=== PATIENT | male | born 1965 | race Caucasian/White ===

== ENCOUNTER 2017-11-24 15:10 | Emergency (ER) | payer MEDICARE, MEDICAID ==
[~2017-11-24] VITALS: Ht 175.3 cm; Wt 85.2 kg
[~2017-11-24 15:10] MED LIST: IBUP-1986 PO
[2017-11-24 15:15] VITALS: BP 130/77
[2017-11-24] MEDS ORDERED: methylPREDNISolone sod succ 125mg/2ml vial IM ONE (15:30)
[2017-11-24 16:33] LABS: CLARITY,URINE CLEAR (Clear); COLOR,URINE YELLOW (Yellow); GLUCOSE, URINE NEGATIVE (Neg); KETONES,URINE TRACE mg/dl (Neg); LEUKOCYTE ESTERASE ,URINE NEGATIVE (Neg); NITRITES, URINE NEGATIVE (Neg); OCCULT BLOOD,URINE MODERATE (Neg); PH,URINE 5.5 (4.8-8.0); PROTEIN,URINE 100 mg/dl (Neg)
[2017-11-24 16:35] LABS: UA COLLECTION TYPE CLN CATCH MIDSTREAM
[2017-11-24 16:38] LABS: BACTERIA,URINE NONE SEEN /HPF (Neg); HYALINE CASTS 0-3 /LPF (NEGATIVE); MUCUS STRANDS MODERATE /LPF (Neg); SQUAMOUS EPITHELIAL CELL,UR FEW /LPF (FEW); WBC,URINE 0-4 /HPF (0-4)
[2017-11-24 16:47] LABS: MONOTEST NEGATIVE (Neg)
[2017-11-24] MEDS ORDERED: PRED10TA23 PO (16:50)
== END 2017-11-24 18:28 | disposition home or self-care (01) ==
LOC: ER 15:11
DX: J02.9 Acute pharyngitis, unspecified (principal); R51 Headache; M54.5 Low back pain; R53.1 Weakness; E11.9 Type 2 diabetes mellitus without complications; J45.909 Unspecified asthma, uncomplicated; F32.9 Major depressive disorder, single episode, unspecified
CPT/HCPCS: 36415; 74176; 81001; 86308; 87081; 87880; 96372; 99285; J2930; 96374

== ENCOUNTER 2018-01-21 07:46 | Emergency (ER) | payer MEDICARE, MEDICAID ==
[~2018-01-21] VITALS: Ht 175.3 cm; Wt 86.4 kg
[2018-01-21 07:59] VITALS: BP 135/86
[2018-01-21] MEDS ORDERED: ketorolac tromethamine 15mg/ml inj. IM ONE (08:10)
== END 2018-01-21 09:20 | disposition home or self-care (01) ==
LOC: ER 07:46
DX: R07.81 Pleurodynia (principal); R05 Cough; R11.10 Vomiting, unspecified; E11.9 Type 2 diabetes mellitus without complications; J45.909 Unspecified asthma, uncomplicated; Z79.899 Other long term (current) drug therapy
CPT/HCPCS: 71046; 96372; 99284; J1885

== ENCOUNTER 2018-03-23 21:26 | Emergency (ER) | payer MEDICARE, MEDICAID ==
[~2018-03-23] VITALS: Ht 175.3 cm; Wt 87.2 kg
[2018-03-23 21:35] VITALS: BP 139/91
== END 2018-03-23 22:27 | disposition home or self-care (01) ==
LOC: ER 21:26
DX: R07.81 Pleurodynia (principal); J45.909 Unspecified asthma, uncomplicated; E11.9 Type 2 diabetes mellitus without complications
CPT/HCPCS: 71045; 99283

== ENCOUNTER 2018-03-31 23:55 | Emergency (ER) | payer MEDICARE, MEDICAID ==
[~2018-03-31] VITALS: Ht 175.3 cm; Wt 74.8 kg
[2018-04-01] MEDS ORDERED: ibuprofen tablet 400 MG TABLET PO ONE (00:20)
[2018-04-01] MEDS ORDERED: IBUP-1984 PO (00:23)
[2018-04-01 00:56] VITALS: BP 137/86
== END 2018-04-01 01:01 | disposition home or self-care (01) ==
LOC: ER 23:55
DX: K08.89 Other specified disorders of teeth and supporting structures (principal); J45.909 Unspecified asthma, uncomplicated; E11.9 Type 2 diabetes mellitus without complications; Z79.899 Other long term (current) drug therapy
CPT/HCPCS: 99283

== ENCOUNTER 2019-10-30 | Emergency (ER) | payer MEDICARE, MEDICAID ==
[~2019-10-30] VITALS: Ht 175.3 cm; Wt 75.6 kg
[2019-10-30 00:06] VITALS: BP 121/71
[2019-10-30] MEDS ORDERED: cephalexin 500mg capsule PO ONE (00:55)
[2019-10-30] MEDS ORDERED: HYDROcodone/acetaminophen 10/325mg tab PO ONE (00:55)
[2019-10-30] MEDS ORDERED: CEPH500C5 PO (00:56)
== END 2019-10-30 01:32 | disposition home or self-care (01) ==
LOC: ER
DX: L03.032 Cellulitis of left toe (principal); J45.909 Unspecified asthma, uncomplicated; E11.9 Type 2 diabetes mellitus without complications; F32.9 Major depressive disorder, single episode, unspecified; Z79.899 Other long term (current) drug therapy
CPT/HCPCS: 87070; 87077; 87186; 99283

== ENCOUNTER 2022-11-27 07:26 | Emergency (ER) | payer BC, MEDICAID ==
[~2022-11-27] VITALS: Ht 177.8 cm; Wt 81.8 kg
[2022-11-27 07:41] VITALS: TEMP 98.4
[2022-11-27 07:49] VITALS: BP 154/84; PULSE 76; RESP 18; O2SAT 97
[2022-11-27] MEDS ORDERED: CIPR2.5D12 RIGHTEYE ×3 (08:12→08:28)
[2022-11-27] MEDS ORDERED: IBUP-1984 PO ×3 (08:12→08:28)
[2022-11-28] MEDS ORDERED: NAPR-56 PO (23:52)
[2022-11-28] MEDS ORDERED: DOXY-356 PO (23:52)
== END 2022-11-27 08:28 | disposition home or self-care (01) ==
LOC: ER 07:26
DX: H00.012 Hordeolum externum right lower eyelid (principal); J45.909 Unspecified asthma, uncomplicated; E11.9 Type 2 diabetes mellitus without complications; F32.A Depression, unspecified
CPT/HCPCS: 99283

== ENCOUNTER 2022-11-28 23:01 | Emergency (ER) | payer BC, MEDICAID ==
[~2022-11-28] VITALS: Ht 175.3 cm; Wt 81.8 kg
[~2022-11-28 23:01] MED LIST changes: +CIPR2.5D12 RIGHTEYE; +IBUP-1984 PO
[2022-11-28 23:19] VITALS: BP 152/92; PULSE 74; RESP 16; TEMP 98.5; O2SAT 96
[2022-11-28] MEDS ORDERED: ketorolac trometh inj. 60 MG/2 ML VIAL IM ONE (23:50)
[2022-11-28] MEDS ORDERED: NAPR-56 PO (23:52)
[2022-11-28] MEDS ORDERED: DOXY-356 PO (23:52)
== END 2022-11-29 00:12 | disposition home or self-care (01) ==
LOC: ER 23:01
DX: K04.7 Periapical abscess without sinus (principal); J45.909 Unspecified asthma, uncomplicated; E11.9 Type 2 diabetes mellitus without complications; F32.A Depression, unspecified; Z79.899 Other long term (current) drug therapy
CPT/HCPCS: 96372; 99283; J1885

== ENCOUNTER 2023-08-03 19:25 | Emergency (ER) | payer BC, MEDICAID ==
[~2023-08-03] VITALS: Ht 175.3 cm; Wt 90.1 kg
[~2023-08-03 19:25] MED LIST changes: -IBUP-1984 PO
[2023-08-03 19:27] VITALS: BP 142/83; PULSE 100; TEMP 98; O2SAT 94
[2023-08-03] MEDS ORDERED: SILV50CR31 TOP (20:16)
[2023-08-03] MEDS ORDERED: CEPH-585 PO (20:16)
[2023-08-03] MEDS ORDERED: silver sulfadiazine cream 400gm jar TP STA (20:17)
[2023-08-03] MEDS ORDERED: ketorolac trometh inj. 60 MG/2 ML VIAL IM ONE (20:20)
[2023-08-03] MEDS: silver sulfadiazine cream 50gm TP STA (21:07)
[2023-08-03 21:23] VITALS: RESP 20
[2023-08-03] MEDS: ketorolac tromethamine 15mg/ml inj. IM ONE (21:23)
== END 2023-08-03 21:35 | disposition home or self-care (01) ==
LOC: ER 19:26
DX: T23.101A Burn of first degree of right hand, unspecified site, initial encounter (principal); Z79.2 Long term (current) use of antibiotics; Z79.1 Long term (current) use of non-steroidal anti-inflammatories (NSAID); X10.1XXA Contact with hot food, initial encounter; Y93.89 Activity, other specified; Y92.89 Other specified places as the place of occurrence of the external cause; Y99.8 Other external cause status
CPT/HCPCS: 16000; 96372; 99283; J1885

== ENCOUNTER 2024-02-13 17:00 | Emergency (ER) | payer BC, MEDICAID ==
[~2024-02-13] VITALS: Ht 175.3 cm; Wt 89.4 kg
[2024-02-13] MEDS ORDERED: IBUP-1984 PO (17:54)
[2024-02-13] MEDS ORDERED: OXYC-145 PO (17:54)
[2024-02-13] MEDS ORDERED: SILV50CR31 TP (17:56)
[2024-02-13] MEDS: acetaminophen 325mg tablet PO ONE (18:00)
[2024-02-13] MEDS: ketorolac trometh 30MG/ML vial 30 MG/ML VIAL IM ONE (18:01)
[2024-02-13] MEDS: silver sulfadiazine cream 400gm jar TP SCH (18:15)
[2024-02-13 18:24] VITALS: BP 132/78; PULSE 78; RESP 14; TEMP 97.9; O2SAT 98
[2024-02-14] MEDS ORDERED: silver sulfadiazine cream 400gm jar TP SCH (08:00)
== END 2024-02-13 18:32 | disposition home or self-care (01) ==
LOC: ER 17:01
DX: T23.251A Burn of second degree of right palm, initial encounter (principal); T23.252A Burn of second degree of left palm, initial encounter; E11.9 Type 2 diabetes mellitus without complications; J45.909 Unspecified asthma, uncomplicated; F32.A Depression, unspecified; Z79.1 Long term (current) use of non-steroidal anti-inflammatories (NSAID); Z79.899 Other long term (current) drug therapy; X19.XXXA Contact with other heat and hot substances, initial encounter; Y93.89 Activity, other specified; Y92.89 Other specified places as the place of occurrence of the external cause; Y99.8 Other external cause status
CPT/HCPCS: 16000; 96372; 99283; J1885

== ENCOUNTER 2024-08-24 22:27 | Emergency (ER) | payer BC, MEDICAID ==
[~2024-08-24] VITALS: Ht 175.3 cm; Wt 78.6 kg
[~2024-08-24 22:27] MED LIST changes: +OXYC-145 PO
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
[2024-08-24] MEDS ORDERED: NALO4SPR BOTHNARES (23:31)
[2024-08-24] MEDS ORDERED: OXYC-658 PO (23:31)
[2024-08-24 23:37] VITALS: BP 141/91; PULSE 86; RESP 14; O2SAT 94
[2024-08-24] MEDS: ketorolac trometh 30MG/ML vial 30 MG/ML VIAL IM ONE (23:44)
[2024-08-25] MEDS ORDERED: HYDR-3965 PO (00:13)
[2024-08-25 00:17] VITALS: TEMP 98
== END 2024-08-25 00:19 | disposition home or self-care (01) ==
LOC: ER 22:28
DX: G89.11 Acute pain due to trauma (principal); F31.9 Bipolar disorder, unspecified; J45.909 Unspecified asthma, uncomplicated; E11.9 Type 2 diabetes mellitus without complications; E78.5 Hyperlipidemia, unspecified; Z86.79 Personal history of other diseases of the circulatory system; Z87.81 Personal history of (healed) traumatic fracture
CPT/HCPCS: 96372; 99283; J1885

== ENCOUNTER 2024-09-07 15:20 | Emergency (ER) | payer BC, MEDICAID ==
[~2024-09-07] VITALS: Ht 175.3 cm; Wt 74.5 kg
[~2024-09-07 15:20] MED LIST changes: +NALO4SPR BOTHNARES
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
[2024-09-07] MEDS: ketorolac trometh 30MG/ML vial 30 MG/ML VIAL IM ONE (16:17)
[2024-09-07] MEDS ORDERED: KETO75CA11 PO (16:32)
[2024-09-07 16:38] VITALS: BP 151/84; PULSE 61; RESP 16; TEMP 98.1; O2SAT 94
== END 2024-09-07 16:41 | disposition home or self-care (01) ==
LOC: ER 15:20
DX: Z00.8 Encounter for other general examination (principal); M25.512 Pain in left shoulder; R07.81 Pleurodynia; E11.9 Type 2 diabetes mellitus without complications; J45.909 Unspecified asthma, uncomplicated; F32.A Depression, unspecified
CPT/HCPCS: 96372; 99283; J1885

== ENCOUNTER 2025-02-18 01:48 | Emergency (ER) | payer BC, MEDICAID ==
[~2025-02-18] VITALS: Ht 175.3 cm; Wt 75.3 kg
[~2025-02-18 01:48] MED LIST changes: +CYCL-1 PO; +KETO75CA11 PO
[2025-02-18 01:50] VITALS: O2SAT 96
--- NOTE | 2025-02-18 03:54 | Physician Documentation ---
History of Present Illness ~ Chief Complaint: Back Pain Stated Complaint: LOWER BACK PAIN Time Seen by MD: 03:44 OK to notify your PCP?: Yes Primary Medical Doctor: dr. miguel Source: patient, RN/MD, RN notes reviewed, old records Mode of Arrival: POV Exam Limitations: no limitations HPI This patient has a history of pinched nerves back pains muscle spasms and arthritis. He works in a warehouse. He has been caring a lot of boxes he tries to use good ergonomics but does twist at times. He started having some severe pain around 15 20 yesterday. He states it was really bad getting up from the couch felt like he pulled something in his back. Sitting sometimes for long times make it worse causing it is a cramp standing up makes it better at time but then starts to her as well he has not taken any medications he does have to go to work in 2 hours does not want any narcotics or sedatives. His last x-ray in the ER was on 02/03/2011. Denies any bowel or bladder incontinence. Pain is sharp stabbing pinching catches his breath feels like a pinched nerve. He also reports pain and muscle spasm slightly worse on the left than the right Medication Reconciliation Allergies: Coded Allergies: No Known Allergies (Unverified , 02/13/24) Scheduled Ciprofloxacin Hcl (Ciloxan 0.35 Ophth Drops), 1 DROP RIGHTEYE Q6H Cyclobenzaprine* (Cyclobenzaprine*), 1 TAB PO HS Ibuprofen (Ibuprofen), 1 TAB PO Q8H Ibuprofen (Ibuprofen), 1 TAB PO Q8H Ibuprofen (Ibuprofen), 1 TAB PO Q8H Ketoprofen (Ketoprofen), 1 CAP PO Q8H Naloxone HCl (Narcan), 1 SPRAYS BOTHNARES ONCE Naproxen (Naproxen), 1 TAB PO Q12H Scheduled PRN Cyclobenzaprine* (Cyclobenzaprine*), 1 TABLET PO Q8H PRN for muscle spasms Oxycodone HCl/Acetaminophen (Percocet 5-325 mg Tablet), 1-2 TABLET PO Q4H PRN for pain Tramadol HCl (Tramadol HCl), 1 TAB PO Q12H PRN PRN for pain Past Medical History Past Medical History: No Pertinent History, Asthma, Diabetes, Chronic Back Pain, *DERMATOLOGY*, Depression Past Surgical History: no surgical history Alcohol Use: None Drug Use: none Lives with: Family Lives In: Home Occupation: disabled Review of Systems All Other Systems at this time: Reviewed and Negative Physical Exam Physical Exam Vital Signs: RN Vital Signs have been reviewed: Yes, Temperature: 98.0, Heart Rate: 73, Respiratory Rate: 16, BP: 119/80, Pulse Oximetry: 96, Weight: 75.270 Oxygen Flow Rate: 0 Physical Exam General: The patient is well developed, well nourished, nontoxic appearing and is in mild acute distress. Uncomfortable stiff appearing Skin: [place], warm and dry with no rashes. HEENT: Head was normocephalic and atraumatic. Eyes - pupils equal, round, reactive to light and accommodation. Extraocular movements were intact. Conjunctivae were nonicteric. Neck: Supple and nontender. There was no jugular venous distention, lymphadenopathy, thyromegaly or masses. Chest: Clear to auscultation bilaterally without wheezes, rales or rhonchi. No accessory muscle use. No dullness to percussion. Heart: Rate regular and rhythmic. S1, S2. No murmurs. Palpation of the chest wall was normal. No rubs or thrills. Abdomen: Soft, nontender and nondistended. Positive bowel sounds. No guarding or rebound. No hepatosplenomegaly or palpable masses. Extremities: No cyanosis, clubbing or edema. The patient moves all extremities. Pulses were equal and symmetric. Back: Diffuse bilateral paraspinal lumbar tenderness along the L1-L4 area. Pain appears more severe around L2 left side Neurologic: Motor sensory grossly intact Psychologic: The patient was oriented to person, place and time. The patient demonstrated appropriate judgement and insight. Progress Results/Orders Reviewed/noted all lab results: Yes Results/Orders Orders - FORD LINN MD Lumbar Spine Limited (02/18/25 03:51) Completed Orders - FORD LINN MD Lumbar Spine Limited (02/18/25 03:51) Orphenadrine Citrate Inj. (Norflex Inj.) (02/18/25 03:55) Triamcinolone Acet 40mg/Ml Inj (Kenalog- (02/18/25 03:55) Naproxen Tablet (Naprosyn Tablet) (02/18/25 03:55) Medications Received in ER Medications (Trade) Dose Ordered Sig/Sole Route PRN Reason Start Time Stop Time Status Last Admin Dose Admin (Norflex inj.) 60 mg ONCE ONCE IM 02/18/25 03:55 02/18/25 03:56 DC 02/18/25 04:06 60 MG (Kenalog-40 inj) 40 mg ONCE ONCE IM 02/18/25 03:55 02/18/25 03:56 DC 02/18/25 04:05 40 MG (Naprosyn tablet) 500 mg ONCE ONCE PO 02/18/25 03:55 02/18/25 04:02 DC 02/18/25 04:13 500 MG Vital Signs 02/18/25 02/18/25 01:50 04:26 Temp 98.0 98.0 Pulse 73 73 Resp 16 16 B/P (MAP) 119/80 119/96 Pulse Ox 96 O2 Flow Rate 0 Re-Evaluation Re-Evaluation : Re-Evaluation: Improved Progress Patient was seen and examined. Patient was given reassurance. Patient received Kenalog IM to help with inflammation pinched nerve. Additionally he received Norflex IM. He received naproxen. Patient's x-ray were obtained. Patient was told to follow up with his primary care physician for follow up and if he continues to have nerve pain may require CAT scan or even MRI. However initial treatment was given today. Patient received a prescription for Flexeril, naproxen as well as Ultram. It was warned about the sedative effects Flexeril and Ultram for the nighttime dose. EKG/XRAY/CT/US/VASC/MRI Bone/Soft Tissue X-Ray (Spine) : Views: 3 VIEW Indication: pain Location: lumbar spine Additional Comment EXAM: DI LUMBAR SPINE LIMITED HISTORY: lumbar L2 pain COMPARISON: None TECHNIQUE: AP and lateral views of the lumbar spine were performed. FINDINGS: No fracture or listhesis of the lumbar spine. There is moderate lower lumbar degenerative disc disease and facet arthropathy. There is fecal retention in the colon. There may be a lamellated gallstone in the right upper quadrant. IMPRESSION: 1. Degenerative changes of the lumbar spine without evidence of fracture. 2. Fecal retention in the colon suggestive of constipation. 3. Possible cholelithiasis. Electronically Signed by:MARCIA LAWRENCE MD Date & Time: 02/18/25428 Dictated by: MARCIA LAWRENCE MD Dictation date and time: 02/18/25428 Primary Care Provider: NO PRIMARY CARE PROVIDER Medical Decision Making Additional information obtaine: old records Findings Radiculopathy, compression fractures, muscle spasms were considered Differential Dx:Considerations: DJD, Fracture, Musculoskeletal pain, Strain, Other Departure Disposition: HOME / SELF CARE / HOMELESS Impression: Primary Impression: Lumbosacral strain Qualified Codes: S39.012A - Strain of muscle, fascia and tendon of lower back, initial encounter Additional Impressions: Spasm of muscle of lower back Strain of lumbar region Qualified Codes: S39.012A - Strain of muscle, fascia and tendon of lower back, initial encounter Condition: Stable Discharge Instructions: Back Exercises Referrals: NO PRIMARY CARE PROVIDER (PCP) Prescriptions Tramadol HCl (Tramadol HCl) 50 Mg Tablet 1 TAB PO Q12H PRN PRN for pain for 30 Days, #60 TAB Prov: FORD LINN MD 02/18/25 Cyclobenzaprine* (Cyclobenzaprine*) 10 Mg Tablet 1 TAB PO HS for muscle spasms for 30 Days, #30 TAB 0 Refills Prov: FORD LINN MD 02/18/25 Naproxen (Naproxen) 500 Mg Tablet 1 TAB PO Q12H, #20 TAB Prov: FORD LINN MD 02/18/25 Education Educated: Patient Educated regarding: diagnosis, need for follow up Signature Scribe Signature: no Attestation: The note accurately reflects work and decisions made by me.Ford Linn MD 02/18/25 03:53 FORD LINN MD Feb 18, 2025 03:54
[2025-02-18] MEDS ORDERED: CYCL-1 PO (03:56)
[2025-02-18] MEDS ORDERED: NAPR-56 PO (03:56)
[2025-02-18] MEDS ORDERED: TRAM50TA2 PO (03:56)
[2025-02-18] MEDS: triamcinolone acetonide 40mg/ml inj IM ONE (04:05)
[2025-02-18] MEDS: orphenadrine citrate 60mg/2ml inj. IM ONE (04:06)
[2025-02-18 04:26] VITALS: BP 119/96; PULSE 73; RESP 16; TEMP 98
--- NOTE | 2025-02-18 04:31 | RADIOLOGY REPORT ---
EXAM: DI LUMBAR SPINE LIMITED HISTORY: lumbar L2 pain COMPARISON: None TECHNIQUE: AP and lateral views of the lumbar spine were performed. FINDINGS: No fracture or listhesis of the lumbar spine. There is moderate lower lumbar degenerative disc disease and facet arthropathy. There is fecal retention in the colon. There may be a lamellated gallstone in the right upper quadrant. IMPRESSION: 1. Degenerative changes of the lumbar spine without evidence of fracture. 2. Fecal retention in the colon suggestive of constipation. 3. Possible cholelithiasis.
== END 2025-02-18 04:28 | disposition home or self-care (01) ==
LOC: ER 01:48
DX: S39.012A Strain of muscle, fascia and tendon of lower back, initial encounter (principal); M62.830 Muscle spasm of back; Z79.899 Other long term (current) drug therapy; X58.XXXA Exposure to other specified factors, initial encounter; Y93.89 Activity, other specified; Y92.89 Other specified places as the place of occurrence of the external cause; Y99.8 Other external cause status
CPT/HCPCS: 72100; 96372; 99284; J2360; J3301